=== PATIENT | male | born 1995 | race Caucasian/White ===

== ENCOUNTER 2016-11-11 18:20 | Emergency (ER) | payer OTHER ==
[~2016-11-11] VITALS: Ht 170.2 cm; Wt 105.0 kg
[~2016-11-11 18:20] MED LIST: [UNRECOGNIZED DRUG - OTHER] PO
[2016-11-11 18:47] VITALS: Ht 170.2 cm; Wt 105.0 kg
[2016-11-11] MEDS ORDERED: NPH10OT LEFT EAR (19:08)
[2016-11-11] MEDS ORDERED: IBUP-1542 PO (19:08)
--- NOTE | 2016-11-11 20:26 | ERD ---
ER Documentation Chief Complaint Date/Time DATE: 11/11/16 TIME: 20:16 Chief Complaint left ear pain x 3 days HPI 21-year-old male presents here in emergency department for complaints of left ear pain started 3 days ago after swimming. Patient describes the pain as throbbing pain, 6/10 scale, noted some whitish discharge from the left ear. Patient denies any trauma in the ear. ROS All systems reviewed and are negative except as per history of present illness. Medications Home Meds Active Scripts Ibuprofen* (Motrin*) 600 Mg Tab, 600 MG PO Q6H Y for PAIN AND OR ELEVATED TEMP, #30 TAB Prov:TALA HORTON NP 11/11/16 Neomycin/Polymyxin/Hydrocort* (Cortisporin* Otic) 10 Ml Susp, 4 DROP LEFT EAR QID for 7 Days, EA Prov:TALA HORTON NP 11/11/16 Reported Medications [Respirdol] No Conflict Check, 0.75 MG PO DAILY 02/12/12 Allergies Allergies: Coded Allergies: No Known Drug Allergies (Verified Adverse Reaction, Unknown, 09/04/12) PMhx/Soc History of Surgery: No Anesthesia Reaction: No Hx Neurological Disorder: No Hx Respiratory Disorders: No Hx Cardiac Disorders: No Hx Psychiatric Problems: No Hx Miscellaneous Medical Probl: Yes (AUTISM) Hx Alcohol Use: No Hx Substance Use: No Hx Tobacco Use: No FmHx Family History: No coronary disease, No diabetes, No other Physical Exam Vitals Vital Signs Date Time Temp Pulse Resp B/P Pulse Ox O2 Delivery O2 Flow Rate FiO2 11/11/16 18:47 98.1 83 20 132/81 100 Physical Exam GENERAL: The patient is well developed and appropriate for usual state of health, in no apparent distress. HEENT: Atraumatic. Ears: Normal tympanic membrane, no erythema or bulging. Left ear tympanic membrane noted to be erythematous and swollen. Nose: normal nasal turbinates, no erythema or swelling. Normal nasal discharge. Throat: oropharynx clear. No tonsillar swelling or tonsillar exudates. No lymphadenopathy. CHEST: Clear to auscultation bilaterally. There are no rales, wheezes or rhonchi. HEART: Regular rate and rhythm. No murmurs, clicks, rubs or gallops. No S3 or S4. ABDOMEN: Soft, nontender and nondistended. Good bowel sounds. No rebound or guarding. No gross peritonitis. No gross organomegaly or masses. No Arana sign or McBurney point tenderness. BACK: No midline or flank tenderness. EXTREMITIES: Equal pulses bilaterally. There is no peripheral clubbing, cyanosis or edema. No focal swelling or erythema. Full range of motion. Grossly neurovascularly intact. NEURO: Alert and oriented. Cranial nerves 2-12 intact. Motor strength in all 4 extremities with 5/5 strength. Sensation grossly intact. Normal speech and gait. SKIN: There is no apparent rash or petechia. The skin is warm and dry. HEMATOLOGIC AND LYMPHATIC: There is no evidence of excessive bruising or lymphedema. No gross cervical, axillary, or inguinal lymphadenopathy. Procedures/MDM Medical decision making: Patient symptoms is likely consistent with otitis externa, no symptoms of otitis media or mastoiditis. No foreign body. No TM perforation. No symptoms of any malignant otitis. No symptoms of any cellulitis. Prescription was given for Corticosporin otic drops, ibuprofen, is advised to follow-up with primary care doctor in 2-3 days for reevaluation of her symptoms. Patient was advised to return to emergency department Disposition: Home. Stable. Departure Diagnosis: Primary Impression: Left otitis externa Otitis externa type: swimmer's ear Chronicity: acute Qualified Code: H60.332 - Acute swimmer's ear of left side Condition: Stable Patient Instructions: External Ear Infection (Adult) TALA HORTON NP Nov 11, 2016 20:26
== END 2016-11-11 19:08 | disposition home or self-care (01) ==
LOC: E/R 18:20
DX: H60.332 Swimmer's ear, left ear (principal); F84.0 Autistic disorder
CPT/HCPCS: 99283

== ENCOUNTER 2016-12-19 04:47 | Emergency (ER) | payer OTHER ==
[~2016-12-19] VITALS: Wt 103.0 kg
[~2016-12-19 04:47] MED LIST changes: +IBUP-1542 PO; +NPH10OT LEFT EAR
[2016-12-19] MEDS ORDERED: ONDANSETRON (ODT) 4 MG TAB ODT STA (05:10)
[2016-12-19] MEDS ORDERED: ONDA4TAB14 PO (05:15)
[2016-12-19] MEDS ORDERED: ACET500C5 PO (05:15)
--- NOTE | 2016-12-19 05:26 | ERD ---
ER Documentation Chief Complaint Date/Time DATE: 12/19/16 TIME: 05:17 Chief Complaint Vomiting and Diarrhea since 0200 HPI 21-year-old male with history of autism and schizophrenia complaining of vomiting and diarrhea since 3 hours ago. Patient reports for episode of vomiting, last episode was about 20 minutes ago, which contains bits of food. Patient states that the vomitus is all red, think it is bloody. He also had 4- 5 episodes of diarrhea, containing streaks of red. He had Monegasque food for dinner the night before. He is able to drink water without vomiting. Denies abdominal pain. Denies cough or runny nose. ROS All systems reviewed and are negative except as per history of present illness. Medications Home Meds Active Scripts Ondansetron (Ondansetron Odt) 4 Mg Tab.rapdis, 4 MG PO Q6H Y for NAUSEA AND/OR VOMITING, #10 TAB Prov:RYANNE MACARIO NP 12/19/16 Acetaminophen* (Tylophen*) 500 Mg Capsule, 1 CAP PO Q6H Y for PAIN AND OR ELEVATED TEMP, #20 CAP Prov:RAYNNE MACARIO NP 12/19/16 Ibuprofen* (Motrin*) 600 Mg Tab, 600 MG PO Q6H Y for PAIN AND OR ELEVATED TEMP, #30 TAB Prov:TALA HORTON NP 11/11/16 Neomycin/Polymyxin/Hydrocort* (Cortisporin* Otic) 10 Ml Susp, 4 DROP LEFT EAR QID for 7 Days, EA Prov:TALA HORTON NP 11/11/16 Reported Medications [Respirdol] No Conflict Check, 0.75 MG PO DAILY 02/12/12 Allergies Allergies: Coded Allergies: No Known Drug Allergies (Verified Adverse Reaction, Unknown, 09/04/12) PMhx/Soc History of Surgery: No Anesthesia Reaction: No Hx Neurological Disorder: No Hx Respiratory Disorders: No Hx Cardiac Disorders: No Hx Psychiatric Problems: Yes (SCHZOPHRENIA) Hx Miscellaneous Medical Probl: Yes (AUTISM) Hx Alcohol Use: No Hx Substance Use: No Hx Tobacco Use: No Smoking Status: Never smoker Physical Exam Vitals Vital Signs Date Time Temp Pulse Resp B/P Pulse Ox O2 Delivery O2 Flow Rate FiO2 12/19/16 04:52 101.2 110 20 139/63 98 Physical Exam General: Well-developed, well-nourished, conscious and coherent, in no distress Skin: Warm and dry without rash, good texture and turgor Head: Normocephalic without evidence of trauma Eyes: Sclera and conjunctivae normal; pupils equal, round, and reactive to light; extraocular movements are intact Ears: Canals are patent. Tympanic membranes are clear Nose/Face: Without rhinorrhea Mouth/throat: Mucous membranes are moist. Posterior pharynx clear without erythema or exudates Neck: Supple without meningismus or adenopathy. Carotids are equal. Trachea midline. No bruits or JVD Chest: Normal AP diameter. Good expansion without retractions. Nontender. Lungs are clear to auscultate bilaterally with good tidal volume Heart: Regular rate and rhythm. No murmur, rub, or gallops heard Abdomen: Soft, diffusely tender without masses, guarding, or rebound. Bowel sounds are active. No hepatosplenomegaly Extremities: Full range of motion. Good strength bilaterally. No clubbing, cyanosis, or edema. Peripheral pulses are intact. Sensation intact Neuro: Alert and oriented 4, GCS 15. Cranial nerves grossly intact. Motor and sensory exams nonfocal. Moves all extremities. Speech clear. Gait normal Results 24 hrs Current Medications Medications (Trade) Dose Ordered Sig/Kemi Route PRN Reason Start Time Stop Time Status Last Admin Dose Admin Ondansetron HCl (Zofran Odt) 4 mg ONCE STAT ODT 12/19/16 05:10 12/19/16 05:12 DC 12/19/16 05:18 Acetaminophen (Tylenol Tab) 650 mg ONCE ONCE PO 12/19/16 05:30 12/19/16 05:31 DC 12/19/16 05:18 Procedures/MDM Well-appearing 21-year-old male present ED with vomiting and diarrhea 3 hours. Patient did present with a fever with temperature 101.2. Tylenol and Zofran given to the patient in the ED. Patient able to tolerate p.o. fluid intake after Zofran. Patient is right upper quadrant or right lower quadrant abdominal tenderness on palpation. I doubt acute appendicitis, cholecystitis or other acute abdomen. Patient's symptoms is consistent with that of viral gastroenteritis. Patient does not have any active vomiting, is able to maintain by mouth fluid intake. Although patient thinks that he has blood in his vomit and diarrhea, I highly doubt that he has ruptured esophageal varices, gastric ulcer, or other acute GI bleeding. I think likely the red color in his vomitus and diarrhea is from his dinner the night before. Patient appears well, stable for discharge and outpatient management. Medical decision making shared with patient and family. Education provided to patient and family. Patient and family expressed understanding of the plan. Medications on discharge: Tylenol, Zofran. Follow-up: Primary care provider in 2-3 days or return to ED if worse. Disclaimer: Inadvertent spelling and grammatical errors are likely due to EHR/ dictation software use and do not reflect on the overall quality of patient care. Also, please note that the electronic time recorded on this note does not necessarily reflect the actual time of the patient encounter. Departure Diagnosis: Primary Impression: Viral gastroenteritis Condition: Stable Patient Instructions: Gastroenteritis, Viral (6Y-Adult) Additional Instructions: Call your primary care doctor TOMORROW for an appointment during the next 2-3 days.See the doctor sooner or return here if your condition worsens before your appointment time. RYANNE MACARIO NP Dec 19, 2016 05:26
[2016-12-19] MEDS ORDERED: ACETAMINOPHEN 325 MG TAB PO ONE (05:30)
[2016-12-19 06:08] VITALS: RESP 20; TEMP 99.3
== END 2016-12-19 06:09 | disposition home or self-care (01) ==
LOC: FTE 04:47
DX: A08.4 Viral intestinal infection, unspecified (principal); F84.0 Autistic disorder
CPT/HCPCS: Z7502; Z7610; 99283

== ENCOUNTER 2017-06-28 11:13 | Emergency (ER) | END 2017-06-28 15:44 | disposition home or self-care (01) ==

== ENCOUNTER 2017-12-27 13:49 | Emergency (ER) | END 2017-12-27 14:53 | disposition home or self-care (01) ==

== ENCOUNTER 2018-11-30 23:03 | Emergency (ER) | payer OTHER ==
[~2018-11-30] VITALS: Ht 177.8 cm; Wt 110.4 kg
[~2018-11-30 23:03] MED LIST changes: +ACET500C5 PO; +BEN50 PO; +HC30CR25 TOP; +ONDA4TAB14 PO
[2018-11-30 23:05] VITALS: Ht 177.8 cm; Wt 110.4 kg
--- NOTE | 2018-12-01 02:16 | ERD ---
ER Documentation Chief Complaint Chief Complaint FEELING LETHARGIC X'S 2 DAYS HPI Patient is a 23 years old male with past medical history of schizophrenia presenting to the clinic for anxiety, low energy, and a sensation of feeling down X few days. Patient denies any suicidal ideation and depression. Patient admits to smoking 4 packs of cigarettes a day. ROS All systems reviewed and are negative except as per history of present illness. Medications Home Meds Active Scripts Hydrocortisone* Topical (Hydrocortisone* Topical) 2.5%-28.3 Gm Cream..g., 1 APPLIC TOP BID, #1 TUB Prov:DEVORA SHEPHERD PA-C 12/27/17 Diphenhydramine Hcl* (Benadryl*) 50 Mg Cap, 50 MG PO Q6 PRN for ITCHING, #30 CAP Prov:DEVORA SHEPHERD PA-C 12/27/17 Ibuprofen* (Motrin*) 600 Mg Tab, 600 MG PO Q6, #30 TAB Prov:PEDRO GOINS PA-C 06/28/17 Ondansetron (Ondansetron Odt) 4 Mg Tab.rapdis, 4 MG PO Q6H PRN for NAUSEA AND/OR VOMITING, #10 TAB Prov:RYANNE MACARIO GLUING MACHINE OPERATOR ELECTRONIC 12/19/16 Acetaminophen* (Tylophen*) 500 Mg Capsule, 1 CAP PO Q6H PRN for PAIN AND OR ELEVATED TEMP, #20 CAP Prov:RYANNE MACARIO. GLUING MACHINE OPERATOR ELECTRONIC 12/19/16 Ibuprofen* (Motrin*) 600 Mg Tab, 600 MG PO Q6H PRN for PAIN AND OR ELEVATED TEMP, #30 TAB Prov:TALA HORTON NP 11/11/16 Neomycin/Polymyxin/Hydrocort* (Cortisporin* Otic) 10 Ml Susp, 4 DROP LEFT EAR QID for 7 Days, EA Prov:TALA HORTON NP 11/11/16 Reported Medications [Respirdol] No Conflict Check, 0.75 MG PO DAILY 02/12/12 Allergies Allergies: Coded Allergies: No Known Drug Allergies (Verified Adverse Reaction, Unknown, 09/04/12) PMhx/Soc History of Surgery: Yes (RIGHT EAR ) Anesthesia Reaction: No Hx Neurological Disorder: Yes (AUTISM) Hx Respiratory Disorders: No Hx Cardiac Disorders: No Hx Psychiatric Problems: Yes (Schzophrenia) Hx Miscellaneous Medical Probl: No Hx Alcohol Use: No Hx Substance Use: No Hx Tobacco Use: No Smoking Status: Never smoker Physical Exam Vitals Vital Signs Date Temp Pulse Resp B/P (MAP) Pulse Ox O2 O2 Flow FiO2 Time Delivery Rate 11/30/18 97.8 104 20 147/77 95 23:05 (100) Physical Exam Const: No acute distress. Head: Atraumatic Eyes: Normal Conjunctiva ENT: Normal External Ears, Nose and Mouth. Neck: Full range of motion. No meningismus. Resp: Clear to auscultation bilaterally Cardio: Regular rate and rhythm, no murmurs Neur: Awake and alert Psych: Normal Mood and Affect Procedures/MDM Patient was seen and evaluated for anxiety without complications. Patient is stable and ready for discharge. Patient advised to follow-up with PCP and psychiatrist. No treatment required for today's visit. Departure Diagnosis: Primary Impression: Anxiety Condition: Stable Patient Instructions: Anxiety Reaction Referrals: [facility] Additional Instructions: Patient advised to return to the ED immediately for new or worsening symptoms. Patient advised to follow up with primary care provider in the next 24-48 hours. Patient verbalized understanding and agrees with treatment plan and course of action. If patient has no primary care they may follow up with [facility] [address] [place] [id number] or [facility] [address] [place] [address] or [facility] [address] [place] [address] STEVE MARSH PA-C Dec 01, 2018 02:16
[2018-12-01 03:02] VITALS: BP 118/78; PULSE 78; RESP 16
== END 2018-12-01 03:03 | disposition home or self-care (01) ==
LOC: FTE 23:03
DX: F41.9 Anxiety disorder, unspecified (principal); F17.210 Nicotine dependence, cigarettes, uncomplicated
CPT/HCPCS: 99282

== ENCOUNTER 2018-12-19 10:46 | Emergency (ER) | payer OTHER ==
[~2018-12-19] VITALS: Ht 180.3 cm; Wt 108.5 kg
[2018-12-19 10:47] VITALS: BP 134/71; PULSE 78; RESP 18; Ht 180.3 cm; Wt 108.5 kg
[2018-12-19] MEDS ORDERED: morphine 2 MG INJ IV STA (11:45)
[2018-12-19] MEDS ORDERED: ONDANSETRON 4 MG INJ IV STA (11:45)
[2018-12-19] MEDS ORDERED: LIDOCAINE/MYLANTA 40 ML BTL PO STA (11:45)
[2018-12-19] MEDS ORDERED: SOD CHLORIDE 0.9% 1,000 ML IV STA (11:45)
[2018-12-19] MEDS ORDERED: DICYCLOMINE 10 MG CAP PO ONE (12:00)
--- NOTE | 2018-12-19 12:51 | ERD ---
ER Documentation Chief Complaint Chief Complaint cough, vomitting & sorethroat x1wk HPI 23-year-old male presents to ED complaining of nausea and vomiting x2 days. He reports that his throat hurts as a result of the frequent vomiting. He denies any fevers or chills. He reports a frequent dry cough. He he reports nonspecific abdominal tenderness that feels like the acid in his stomach is hurting. He denies any changes in his urinary or bowel habits. He has not eaten anything in the past 2 days because he cannot keep it down. Denies any other past medical history. He has not taken any medication. ROS All systems reviewed and are negative except as per history of present illness. Medications Home Meds Active Scripts Ibuprofen* (Motrin*) 600 Mg Tab, 600 MG PO Q6H PRN for PAIN AND OR ELEVATED TEMP, #30 TAB Prov:JOSE PEOPLES PA-C 12/19/18 Ondansetron (Ondansetron Odt) 4 Mg Tab.rapdis, 4 MG PO Q6H PRN for NAUSEA AND/OR VOMITING, #20 TAB Prov:JOSE PEOPLES PA-C 12/19/18 Hydrocortisone* Topical (Hydrocortisone* Topical) 2.5%-28.3 Gm Cream..g., 1 APPLIC TOP BID, #1 TUB Prov:DEVORA SHEPHERD PA-C 12/27/17 Diphenhydramine Hcl* (Benadryl*) 50 Mg Cap, 50 MG PO Q6 PRN for ITCHING, #30 CAP Prov:DEVORA SHEPHERD PA-C 12/27/17 Ibuprofen* (Motrin*) 600 Mg Tab, 600 MG PO Q6, #30 TAB Prov:PEDRO GOINS PA-C 06/28/17 Ondansetron (Ondansetron Odt) 4 Mg Tab.rapdis, 4 MG PO Q6H PRN for NAUSEA AND/OR VOMITING, #10 TAB Prov:RYANNE MACARIO NP 12/19/16 Acetaminophen* (Tylophen*) 500 Mg Capsule, 1 CAP PO Q6H PRN for PAIN AND OR ELEVATED TEMP, #20 CAP Prov:RYANNE MACARIO NP 12/19/16 Ibuprofen* (Motrin*) 600 Mg Tab, 600 MG PO Q6H PRN for PAIN AND OR ELEVATED TEMP, #30 TAB Prov:SOLTALA Santana SENIOR GRADUATE ADVISOR 11/11/16 Neomycin/Polymyxin/Hydrocort* (Cortisporin* Otic) 10 Ml Susp, 4 DROP LEFT EAR QID for 7 Days, EA Prov:TALA HORTON KILGORE Max SENIOR GRADUATE ADVISOR 11/11/16 Reported Medications [Respirdol] No Conflict Check, 0.75 MG PO DAILY 02/12/12 Allergies Allergies: Coded Allergies: No Known Drug Allergies (Verified Adverse Reaction, Unknown, 12/19/18) PMhx/Soc History of Surgery: Yes (RIGHT EAR ) Anesthesia Reaction: No Hx Neurological Disorder: Yes (AUTISM) Hx Respiratory Disorders: No Hx Cardiac Disorders: No Hx Psychiatric Problems: Yes (Schzophrenia) Hx Miscellaneous Medical Probl: No Hx Alcohol Use: No Hx Substance Use: No Hx Tobacco Use: No Smoking Status: Never smoker FmHx Family History: No diabetes Physical Exam Vitals Vital Signs Date Temp Pulse Resp B/P (MAP) Pulse Ox O2 O2 Flow FiO2 Time Delivery Rate 12/19/18 99.2 78 18 134/71 99 10:47 (92) Physical Exam Const: No acute distress Head: Atraumatic Eyes: Normal Conjunctiva ENT: Normal External Ears, Nose and Mouth. Neck: Full range of motion. Resp: Clear to auscultation bilaterally Cardio: Regular rate and rhythm Abd: Soft, slight nonspecific abdominal tenderness all around, no rebounding, no guarding, no localized tenderness, non distended. Normal bowel sounds Back: No midline or flank tenderness Neur: Awake and alert Psych: Normal Mood and Affect Results 24 hrs Current Medications Medications Dose Sig/Kemi Start Time Status Last (Trade) Ordered Route PRN Stop Time Admin Dose Reason Admin Sodium 1,000 ml @ Q1H STAT 12/19/18 DC 12/19/18 Chloride 1,000 mls/hr IV 11:45 12/19/18 12:01 12:44 Morphine 2 mg ONCE STAT 12/19/18 DC 12/19/18 Sulfate IV 11:45 12/19/18 12:01 (morphine) 11:47 Ondansetron 4 mg ONCE STAT 12/19/18 DC 12/19/18 HCl (Zofran IV 11:45 12/19/18 12:01 Inj) 11:47 40 ml ONCE STAT 12/19/18 DC 12/19/18 Miscellaneous PO 11:45 12/19/18 12:00 Medication 11:47 (Gi Cocktail (2)) Dicyclomine 20 mg ONCE ONCE 12/19/18 DC 12/19/18 HCl PO 12:00 12/19/18 12:01 (Bentyl) 12:01 Procedures/MDM ED COURSE: The patient was stable throughout ED course. I kept the patient informed of laboratory and diagnostic imaging results throughout the ED course. PROCEDURES: IV fluids MEDICATIONS GIVEN: IV fluids, GI cocktail, Bentyl, Zofran, morphine Patient tolerated medication well with no adverse reactions. Patient reported improvement in pain. MEDICAL DECISION MAKING: Patient is a 23-year-old male presenting with nausea and vomiting x2 days. I have low suspicion for appendicitis, cholecystitis, choledocholithiasis, acute cholangitis, ACS, pneumothorax, pulmonary embolism. On physical exam patient was in no acute distress but appeared dehydrated. He had nonspecific tenderness all around his abdomen. Patient was given IV fluids with GI cocktail, Zofran, morphine, Bentyl which greatly improved his symptoms. Patient was much better with no tenderness on reexamination. Patient asked for a sandwich. Patient was discharged with Zofran and Motrin and told to follow-up with his primary care provider on outpatient basis. All questions were answered. Vital signs were reviewed. Patient is afebrile. Patient was not hypoxic. Patient was hemodynamically stable. Patient was told to follow up with primary care for further care and management. PRESCRIPTION: Zofran, Motrin DISCHARGE: At this time, patient is stable for discharge and outpatient management. I have instructed the patient to follow-up with their primary care physician in 1-2 days. I have discussed with the patient the possibility of needing to see a specialist for further workup and imaging studies if symptoms persist. I have instructed the patient to promptly return to the ER for any new or worsening symptoms including increased pain, fever, nausea, vomiting, weakness or LOC. The patient expressed understanding of and agreement with this plan. All questions were answered. Home care instructions were provided. Disclaimer: Inadvertent spelling and grammatical errors are likely due to EHR/dictation software use and do not reflect on the overall quality of patient care. Also, please note that the electronic time recorded on this note does not necessarily reflect the actual time of the patient encounter. Departure Diagnosis: Primary Impression: Viral gastroenteritis Condition: Fair Patient Instructions: Gastroenteritis, Viral (7Y-Adult) Referrals: [facility] YOU HAVE RECEIVED A MEDICAL SCREENING EXAM AND THE RESULTS INDICATE THAT YOU DO NOT HAVE A CONDITION THAT REQUIRES URGENT TREATMENT IN THE EMERGENCY DEPARTMENT. FURTHER EVALUATION AND TREATMENT OF YOUR CONDITION CAN WAIT UNTIL YOU ARE SEEN IN YOUR DOCTORS OFFICE WITHIN THE NEXT 1-2 DAYS. IT IS YOUR RESPONSIBILITY TO MAKE AN APPOINTMENT FOR FOLOW-UP CARE. IF YOU HAVE A PRIMARY DOCTOR --you should call your primary doctor and schedule an appointment IF YOU DO NOT HAVE A PRIMARY DOCTOR YOU CAN CALL OUR PHYSICIAN REFERRAL HOTLINE AT IF YOU CAN NOT AFFORD TO SEE A PHYSICIAN YOU CAN CHOSE FROM THE FOLLOWING [facility] [address] [facility] [address] [facility] [facility] [address] [facility] [address] [facility] [address]. [facility] [address] [facility]. [facility] YOU HAVE RECEIVED A MEDICAL SCREENING EXAM AND THE RESULTS INDICATE THAT YOU DO NOT HAVE A CONDITION THAT REQUIRES URGENT TREATMENT IN THE EMERGENCY DEPARTMENT. FURTHER EVALUATION AND TREATMENT OF YOUR CONDITION CAN WAIT UNTIL YOU ARE SEEN IN YOUR DOCTORS OFFICE WITHIN THE NEXT 1-2 DAYS. IT IS YOUR RESPONSIBILITY TO MAKE AN APPOINTMENT FOR FOLOW-UP CARE. IF YOU HAVE A PRIMARY DOCTOR --you should call your primary doctor and schedule and appointment IF YOU DO NOT HAVE A PRIMARY DOCTOR YOU CAN CALL OUR PHYSICIAN REFERRAL HOTLINE AT . IF YOU CAN NOT AFFORD TO SEE A PHYSICIAN YOU CAN CHOSE FROM THE FOLLOWING [facility] INSTITUTIONS: [facility] [address] [place] [address] [facility] [address] [place] [address] [facility] [address] [place] [address] Additional Instructions: Call your primary care doctor TOMORROW for an appointment during the next 1-2 days.See the doctor sooner or return here if your condition worsens before your appointment time. JOSE PEOPLES PA-C Dec 19, 2018 12:51
== END 2018-12-19 13:12 | disposition home or self-care (01) ==
LOC: FTE 10:46
DX: A08.4 Viral intestinal infection, unspecified (principal)
CPT/HCPCS: 96374; 96375; J2270; J2405; J7030; Z7502; Z7610